=== PATIENT | female | born 1940 | race Caucasian/White ===

== ENCOUNTER → 2016-11-21 | Outpatient (CLI) | payer MEDICARE, BC ==
[~2016-11-21] MED LIST: ASPIRIN 81M81 MG/TA2 PO; LIPITOR20 MG PO; LOPRESSOR 225 MG/TAB PO; TAMBOCOR 1100 MG/TAB PO
== END ==
LOC: MC.RAD 08:57
DX: Z12.31 Encounter for screening mammogram for malignant neoplasm of breast (principal)

== ENCOUNTER → 2017-10-15 | Outpatient (CLI) | payer MEDICARE, BC ==
[~2017-10-15] MED LIST changes: +CORDARONE200 MG/TAB PO; +COZAAR 50MG50 MG/TAB PO; +ELIQUIS 5MG PO; +LUTEIN6 MG PO; +TOPROL XL 25MG25 MG PO
== END ==
LOC: COL.RAD 10:40
DX: I65.23 Occlusion and stenosis of bilateral carotid arteries (principal); J98.4 Other disorders of lung; I63.9 Cerebral infarction, unspecified; Z98.890 Other specified postprocedural states; Z95.4 Presence of other heart-valve replacement
CPT/HCPCS: Q9967

== ENCOUNTER 2017-10-16 13:33 | Inpatient (IN) | payer MEDICARE, BC ==
[2017-10-16] VITALS (10 sets, daily range): BP systolic 105–124; BP diastolic 55–93; PULSE 64–80; TEMP 99–100.1
[~2017-10-16] VITALS: Ht 160 cm; Wt 57.5 kg
[~2017-10-16 13:33] MED LIST changes: -CORDARONE200 MG/TAB PO; -COZAAR 50MG50 MG/TAB PO; -ELIQUIS 5MG PO; -LUTEIN6 MG PO; -TOPROL XL 25MG25 MG PO
[2017-10-16] MEDS ORDERED: COZAAR 50MG50 MG/TAB PO (14:27)
[2017-10-16] MEDS ORDERED: TOPROL XL 25MG25 MG PO (14:28)
[2017-10-16 14:29] LABS: HEMATOCRIT 34.9 % (37.0-47.0); HEMOGLOBIN 11.7 g/dl (12.5-16.0); MEAN CELL VOLUME 90 fl (80.0-100.0); MEAN CORPUSCULAR HEMOGLOBIN 30 pg (27.0-31.0); MEAN CORPUSCULAR HGB CONC 34 g/dl (33.0-37.0); MEAN PLATELET VOLUME 9.9 fl (7.4-10.4); PLATELET COUNT 167 K/mm3 (130-400); RED BLOOD COUNT 3.86 M/mm3 (4.10-5.30); REDCELL DISTRIBUTION WIDTH-CV 11.9 % (11.5-14.5)
[2017-10-16 14:30] LABS: INR 1.4 (0.8-3.0); PROTHROMBIN TIME 15.7 SECONDS (9.7-12.8)
[2017-10-16] MEDS ORDERED: LUTEIN6 MG PO (14:32)
[2017-10-16 14:43] LABS: CALCIUM 8.3 mg/dL (8.4-10.2); CREATININE, serum 0.62 mg/dL (0.52-1.25)
[2017-10-16 18:39] LABS: HEMATOCRIT 36.1 % (37.0-47.0); HEMOGLOBIN 12.1 g/dl (12.5-16.0); MEAN CELL VOLUME 90 fl (80.0-100.0); MEAN CORPUSCULAR HEMOGLOBIN 30 pg (27.0-31.0); MEAN CORPUSCULAR HGB CONC 34 g/dl (33.0-37.0); MEAN PLATELET VOLUME 9.9 fl (7.4-10.4); PLATELET COUNT 157 K/mm3 (130-400); REDCELL DISTRIBUTION WIDTH-CV 11.9 % (11.5-14.5)
[2017-10-16 18:45] LABS: INR 1.3 (0.8-3.0); PROTHROMBIN TIME 14.8 SECONDS (9.7-12.8)
[2017-10-17] VITALS (245 sets, daily range): BP systolic 102–125; BP diastolic 56–70; PULSE 82–102; TEMP 98–99.5; O2SAT 88–100
[2017-10-17 07:12] LABS: MEAN CELL VOLUME 89 fl (80.0-100.0); MEAN CORPUSCULAR HEMOGLOBIN 31 pg (27.0-31.0); MEAN CORPUSCULAR HGB CONC 34 g/dl (33.0-37.0); MEAN PLATELET VOLUME 10.5 fl (7.4-10.4); PLATELET COUNT 163 K/mm3 (130-400); RED BLOOD COUNT 3.94 M/mm3 (4.10-5.30); REDCELL DISTRIBUTION WIDTH-CV 11.9 % (11.5-14.5)
[2017-10-17 07:14] LABS: HEMATOCRIT 34.9 % (37.0-47.0)
[2017-10-18] VITALS (8 sets, daily range): BP systolic 102–131; BP diastolic 61–86; PULSE 67–96; TEMP 97.5–98.6
[2017-10-18 08:08] LABS: BASO # 0.1 (0.0-0.2); BASO % 0.6 % (0.0-2.0); EOS # 0.2 (0.0-0.7); EOS % 1.4 % (0-4.0); GRAN # 12.4 (1.4-6.5); GRAN % 80.1 % (42.2-75.2); HEMOGLOBIN 10.9 g/dl (12.5-16.0); LYMPH # 1.4 (1.2-3.4); LYMPH % 8.9 % (20.0-51.0); MEAN CELL VOLUME 90 fl (80.0-100.0); MEAN CORPUSCULAR HEMOGLOBIN 31 pg (27.0-31.0); MEAN CORPUSCULAR HGB CONC 34 g/dl (33.0-37.0); MEAN PLATELET VOLUME 11.7 fl (7.4-10.4); MONO # 1.3 (0.1-0.6); MONO % 8.2 % (1.7-9.3); PLATELET COUNT 196 K/mm3 (130-400); RED BLOOD COUNT 3.57 M/mm3 (4.10-5.30)
[2017-10-18 09:08] LABS: ALBUMIN 2.5 gm/dL (3.5-5.0); BILIRUBIN,TOTAL 0.6 mg/dL (0.0-1.0); CALCIUM 7.9 mg/dL (8.4-10.2); CREATININE, serum 0.53 mg/dL (0.52-1.25); MAGNESIUM 2.3 mg/dL (1.6-2.3); PHOSPHOROUS 3.3 mg/dL (2.5-4.5); POTASSIUM 3.6 mmol/L (3.4-5.0); TOTAL PROTEIN 5.5 gm/dL (6.4-8.2)
[2017-10-19 03:33] VITALS: BP 117/75; PULSE 94; TEMP 98.4
[2017-10-19 07:39] LABS: HEMOGLOBIN 11.8 g/dl (12.5-16.0); MEAN CELL VOLUME 90 fl (80.0-100.0); MEAN CORPUSCULAR HEMOGLOBIN 31 pg (27.0-31.0); MEAN CORPUSCULAR HGB CONC 34 g/dl (33.0-37.0); MEAN PLATELET VOLUME 10.9 fl (7.4-10.4); PLATELET COUNT 235 K/mm3 (130-400); RED BLOOD COUNT 3.87 M/mm3 (4.10-5.30); REDCELL DISTRIBUTION WIDTH-CV 12.2 % (11.5-14.5)
[2017-10-19 07:47] LABS: HEMATOCRIT 34.9 % (37.0-47.0)
[2017-10-19 08:24] VITALS: BP 129/86; PULSE 105; TEMP 98
[2017-10-19 11:42] VITALS: BP 140/84; PULSE 106; TEMP 98.4
[2017-10-19 16:03] VITALS: BP 113/70; PULSE 83; TEMP 98.7
[2017-10-19] MEDS ORDERED: ELIQUIS 5MG PO (17:37)
[2017-10-19] MEDS ORDERED: CORDARONE200 MG/TAB PO (17:38)
== END 2017-10-19 18:15 | disposition home or self-care (01) | DRG 314 ==
LOC: COL.RAD 13:33 → MEDICAL 19:45 → COL.RAD 19:45 → ICU 10-17 03:58 → MEDICAL 10-17 03:58 → ICU 10-18 11:22 → MEDICAL 10-18 19:00
PROVIDERS: Internal Medicine Interventional Cardiology
DX: T82.6XXA Infection and inflammatory reaction due to cardiac valve prosthesis, initial encounter (principal); I33.0 Acute and subacute infective endocarditis; B95.4 Other streptococcus as the cause of diseases classified elsewhere; I48.91 Unspecified atrial fibrillation; Z85.828 Personal history of other malignant neoplasm of skin
CPT/HCPCS: J0282; J0696; J1580; J1644; J2250; J3010; J7060

== ENCOUNTER 2017-11-16 06:31 | Emergency (ER) | payer MEDICARE, BC ==
[~2017-11-16] VITALS: Ht 162.6 cm; Wt 63.6 kg
[~2017-11-16 06:31] MED LIST changes: +CORDARONE200 MG/TAB PO; +COZAAR 50MG50 MG/TAB PO; +ELIQUIS 5MG PO; +LUTEIN6 MG PO; +MULTI VITAMINS1 TAB PO; +ROCEPHIN 2GM VIAL21 IJ; +TOPROL XL 25MG25 MG PO
[2017-11-16 06:35] VITALS: TEMP 95.9
[2017-11-16 06:48] LABS: BASO # 0.1 (0.0-0.2); EOS # 0.3 (0.0-0.7); EOS % 1.8 % (0-4.0); GRAN # 9.8 (1.4-6.5); GRAN % 69.4 % (42.2-75.2); HEMOGLOBIN 11.1 g/dl (12.5-16.0); LYMPH # 2.8 (1.2-3.4); LYMPH % 19.5 % (20.0-51.0); MEAN CELL VOLUME 90 fl (80.0-100.0); MEAN CORPUSCULAR HEMOGLOBIN 29 pg (27.0-31.0); MEAN CORPUSCULAR HGB CONC 33 g/dl (33.0-37.0); MEAN PLATELET VOLUME 10.3 fl (7.4-10.4); MONO # 1.1 (0.1-0.6); MONO % 7.9 % (1.7-9.3); PLATELET COUNT 196 K/mm3 (130-400); RED BLOOD COUNT 3.77 M/mm3 (4.10-5.30); REDCELL DISTRIBUTION WIDTH-CV 13.1 % (11.5-14.5)
[2017-11-16] MEDS ORDERED: GENTAMICIN180 MG/502 (06:56)
[2017-11-16 06:57] LABS: INR 1.5 (0.8-3.0); PROTHROMBIN TIME 16.8 SECONDS (9.7-12.8)
[2017-11-16 06:58] LABS: ALBUMIN 3.7 gm/dL (3.5-5.0); BILIRUBIN,TOTAL 0.6 mg/dL (0.0-1.0); CREATININE, serum 0.88 mg/dL (0.52-1.25); POTASSIUM 3.7 mmol/L (3.4-5.0); TOTAL PROTEIN 6.7 gm/dL (6.4-8.2)
[2017-11-16 07:12] LABS: TROPONIN-I 0.035 ng/mL (0.000-0.034)
[2017-11-16 08:20] VITALS: BP 125/87; PULSE 92
== END 2017-11-16 08:27 | disposition short-term general hospital (02) ==
LOC: COL.ER 06:31
PROVIDERS: Emergency Medicine
DX: I63.9 Cerebral infarction, unspecified (principal); G81.01 Flaccid hemiplegia affecting right dominant side; I38 Endocarditis, valve unspecified; I48.91 Unspecified atrial fibrillation; R79.89 Other specified abnormal findings of blood chemistry; Z79.01 Long term (current) use of anticoagulants; Z98.890 Other specified postprocedural states; Z79.82 Long term (current) use of aspirin; Z86.79 Personal history of other diseases of the circulatory system
CPT/HCPCS: J0696; J1160; J2405; J7030; J7050